=== PATIENT | female | born 2005 | race Hispanic/Latino ===

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

== ENCOUNTER 2024-07-07 20:17 | Emergency (ER) | payer OTHER ==
[~2024-07-07] VITALS: Ht 157.5 cm; Wt 54.4 kg
[2024-07-07] MEDS: AZITHROMYCIN 250 MG TABLET PO ONE (21:02)
[2024-07-07] MEDS: cefTRIAXone 1G VIAL IM ONE (21:02)
[2024-07-07 21:11] LABS: APPEARANCE,URINE CLEAR (CLEAR); BILIRUBIN,URINE NEGATIVE (NEGATIVE); COLOR,URINE LIGHT-YELLOW (YELLOW); GLUCOSE, URINE (UA) NEGATIVE (NEGATIVE); KETONES,URINE NEGATIVE (NEGATIVE); LEUKOCYTE ESTERASE ,URINE 500 Leu/uL (NEGATIVE); NITRATE,URINE NEGATIVE (NEGATIVE); OCCULT BLOOD,URINE NEGATIVE (NEGATIVE); PH,URINE 7.5 (5.0-8.0); PROTEIN,URINE NEGATIVE (NEGATIVE); UROBILINOGEN,URINE 0.2 mg/dL (0.2-1.0)
[2024-07-07 21:18] LABS: HCG,QUALITATIVE URINE NEGATIVE (NEGATIVE)
[2024-07-07 21:19] LABS: ADD UA MICROSCOPIC YES
[2024-07-07 21:21] LABS: BACTERIA,URINE RARE /HPF (None Seen); SQUAMOUS EPITHELIAL CELL,UR RARE /HPF (0-2)
[2024-07-07 22:34] VITALS: BP 106/72; PULSE 85; RESP 16; TEMP 98.1; O2SAT 98
[2024-07-07] MEDS ORDERED: NITR100C4 PO (22:37)
--- NOTE | 2024-07-07 22:38 | ERN ---
ED Note History of Present Illness Stated Complaint: STD EXPOSURE Chief Complaint: Sexually Transmitted Disease Time Seen by MD: 20:28 Time Seen by Midlevel: 20:28 Dictation: The patient is a 19-year-old female with no past medical history who presents to the emergency department due to exposure to chlamydia from her boyfriend. Patient reports her boyfriend tested positive for chlamydia today. Patient denies any vaginal discharge, urinary discomfort, abdominal pain, nausea vomiting or diarrhea. Patient has no complaints Allergies: Coded Allergies: No Known Drug Allergies (Unverified Allergy, Unknown, 07/07/24) Home Meds Active Scripts Nitrofurantoin Monohyd/M-Cryst (Macrobid 100 mg Capsule) 100 Mg Capsule, 1 CAP PO BID for 5 Days, #10 CAP 0 Refills Prov:JEWEL MENDEZ [employer] ASSISTANT 07/07/24 Past Medical History Past Medical History: No Pertinent History Surgical History: None LMP: Jun 30, 2024 RN Note Reviewed/Agreed w/PFSH: Yes Review of System Dictation Constitutional: Negative for fever,chills, and weight loss Eyes: Negative for injury, pain,redness, and discharge ENT: Negative for injury,pain or swelling Cardiovascular: Negative for chest pain, palpitations, and edema Respiratory: Negative for shortness of breath, cough, and wheezing, Abdomen/GI: Negative for abdominal pain, nausea, vomiting, diarrhea, and constipation Back: Negative for injury and pain : Negative for injury, bleeding and discharge MS/Extremity: Negative for injury and deformity Skin: Negative for rash, and discoloration Neuro: Negative for headache, weakness, numbness, tingling, and seizure Psych: Negative for suicide ideation, homicidal ideation, and hallucinations Initial Vital Sign VS Vital Signs Date Time Temp Pulse Resp B/P (MAP) Pulse Ox O2 Delivery O2 Flow Rate FiO2 07/07/24 20:20 97.5 100 18 109/76 99 Room Air 0 07/07/24 20:50 21 Physical Exam Dictation Vital Signs reviewed General Appearance: Alert, oriented x 3, no acute distress, well developed, nourished. Head and Face: non-traumatic. Eyes: PERRL, pink conjunctivas, eyelid no trauma, anterior chamber with arcus senilis. Ears: Pinnas intact and no signs of trauma or erythema ear canals clear and no discharge TM no erythema Nose: No discharge, no bleeding. Oropharynx: Mouth normal, tongue pink. pharynx clear,no erythema, tonsils no exudates, no abscesses noted, mucous membrane moist Neck: Supple, non-tender, no thyromegaly, no masses, no JVD, no bruits Breast:Deferred Chest:No tenderness, no crepitus, no paradoxical movement, no retractions Lungs:Clear, well-ventilated, symmetric, no rales, no wheezing, no rhonchi, no stridor, good breath sounds bilaterally Heart: Regular rate, regular rhythm, no murmur, no gallops Vascular: no peripheral edema, Abdomen: Soft, positive bowel sounds, nondistended, no guarding, nontender, no rebound, no masses no hepatomegaly, no splenomegaly, no Macario's sign, no hernias. Rectal: Deferred Genital: Deferred Neurological: Normal speech, motor function intact, sensory function intact Musculoskeletal: Neck nontender, full range of motion, back nontender, full range of motion, Extremities: nontender, full range of motion Skin: Color pink, dry, no turgor, no rash, no lacerations, no abrasions, no contusions. Lymphatic: Deferred Results (Laboratory/Radiology) Laboratory/Radiology Laboratory Tests Test 07/07/24 20:34 Urine Color LIGHT-YELLOW (YELLOW) Urine Appearance CLEAR (CLEAR) Urine pH 7.5 (5.0-8.0) Urine Specific [place] 1.013 (1.001-1.031) Urine Protein NEGATIVE mg/dL (NEGATIVE) Urine Glucose (UA) NEGATIVE mg/dL (NEGATIVE) Urine Ketones NEGATIVE mg/dL (NEGATIVE) Urine Occult Blood NEGATIVE (NEGATIVE) Urine Nitrate NEGATIVE (NEGATIVE) Urine Bilirubin NEGATIVE mg/dL (NEGATIVE) Urine Urobilinogen 0.2 mg/dL (0.2-1.0) Urine Leukocyte Esterase 500 Ranulfo/uL (NEGATIVE) H Urine RBC 2-5 /HPF (0-1) H Urine WBC 6-10 /HPF (0-1) H Urine Squamous Epithelial Cells RARE /HPF (0-2) Urine Bacteria RARE /HPF (None Seen) Urine HCG, Qualitative NEGATIVE (NEGATIVE) Labs Reviewed?: Yes ED Course ED Course Orders Procedure Category Date Status Time Urinalysis Profile LAB 07/07/24 Complete 20:45 ,Urine Test LAB 07/07/24 Complete 20:45 Chlamydia & Gc Pcr TYRESE 07/07/24 In Process 20:45 Ceftriaxone 1g Vial PHA 07/07/24 Complete (Rocephine 1g Inj) 21:00 Azithromycin PHA 07/07/24 Complete (Zithromax) 21:00 Culture Urine TYRESE 07/07/24 In Process 21:19 Current Medications Medications (Trade) Dose Ordered Sig/Jose Route PRN Reason Start Time Stop Time Status Last Admin Dose Admin Azithromycin (Zithromax) 1,000 mg ONCE ONCE PO 07/07/24 21:00 07/07/24 21:10 DC 07/07/24 21:02 Ceftriaxone Sodium (ROCEphine 1G INJ) 1 gm ONCE ONCE IM 07/07/24 21:00 07/07/24 21:10 DC 07/07/24 21:02 Vital Signs Date Time Temp Pulse Resp B/P (MAP) Pulse Ox O2 Delivery O2 Flow Rate FiO2 07/07/24 22:34 98.1 85 16 106/72 98 Room Air* 0 07/07/24 20:50 98.1 90 16 108/74 98 Room Air* 0 07/07/24 20:20 97.5 100 18 109/76 99 Room Air 0 Medical Decision Making MDM The patient is a 19-year-old female with no past medical history who presents to the emergency department due to exposure to chlamydia from her boyfriend. Patient reports her boyfriend tested positive for chlamydia today. Patient denies any vaginal discharge, urinary discomfort, abdominal pain, nausea vomiting or diarrhea. Patient has no complaints Patient will be treated for chlamydia and gonorrhea. Pending urinalysis results. Patient's urine with leukocyte esterase. Will be treated with a UTI. Patient continues in no distress will be discharged to follow up with PCP for f urther management. Differential diagnosis: Chlamydia, gonorrhea, UTI Need for hospitalization: Patient does not meet criteria for hospitalization. There are no social concerns with this patient. DX & DISP Disposition: Discharge Departure Impression: Primary Impression: UTI (urinary tract infection) Additional Impression: Possible exposure to STI Condition: Stable Scripts Nitrofurantoin Monohyd/M-Cryst (Macrobid 100 mg Capsule) 100 Mg Capsule 1 CAP PO BID for 5 Days, #10 CAP 0 Refills Prov: JEWEL MENDEZ [employer] ASSISTANT 07/07/24 Additional Instructions: Please follow up with your PCP for further management and further STD testing. Please follow up on your results. FOLLOW-UP WITH PRIMARY CARE PROVIDER IN 1 TO 2 DAYS. TAKE MEDICATIONS DIRECTED HERE IN THE EMERGENCY ROOM. OKAY TO CONTINUE HOME MEDICATIONS UNLESS OTHERWISE DISCUSSED DURING YOUR VISIT IN THE EMERGENCY ROOM TODAY. RETURN TO YOUR NEAREST EMERGENCY ROOM IF SYMPTOMS WORSEN OR IF THERE IS NO IMPROVEMENT. CALL 911 IF YOU NEED IMMEDIATE ASSISTANCE. TAKE TYLENOL OR MOTRIN [id number] NEEDED AND IF NO CONTRAINDICATIONS ARE PRESENT. INCREASE ORAL HYDRATION. A WOUND CULTURE OR URINE CULTURE WAS ORDERED HERE IN THE EMERGENCY ROOM DEPARTMENT PLEASE FOLLOW-UP WITH PRIMARY CARE PROVIDER AND ADVISE THEM TO GET REPEAT PORTS FROM OUR FACILITY. IF YOU HAD ANY ALICIA WRAP/SPLINTS THAT WERE APPLIED HERE, PLEASE DO NOT REMOVE THEM UNTIL YOU SEE YOUR PRIMARY CARE OR SPECIALTY. Time of Disposition: 22:37 I have reviewed the case, and I agree with, Diagnosis and Plan JEWEL MENDEZ [facility] Jul 07, 2024 22:38
== END 2024-07-07 22:50 | disposition home or self-care (01) ==
LOC: EDH 20:17
DX: N39.0 Urinary tract infection, site not specified (principal); Z20.2 Contact with and (suspected) exposure to infections with a predominantly sexual mode of transmission; Z79.899 Other long term (current) drug therapy
CPT/HCPCS: 99283; 87086; 87491; 87591; 81001; 81025; 96372; J0696